=== PATIENT | male | born 1955 | race Caucasian/White ===

== ENCOUNTER 2021-12-29 10:21 | Outpatient (CLI) | payer MEDICARE, SELFPAY ==
[2021-12-29 12:03] LABS: Albumin* 4.1 g/dL (3.3-5.0); Chloride* 105 mmol/L (96-114)
[2021-12-29 12:04] LABS: Potassium* 3.9 mmol/L (3.6-5.1); Sodium* 142 mmol/L (135-149)
[2021-12-29 12:06] LABS: Bilirubin Total* 0.6 mg/dL (0.1-1.5); Carbon Dioxide* 27 mmol/L (20-32); Cholesterol* 183 mg/dL (90-199); Creatinine* 0.8 mg/dL (0.5-1.5); Estimated Glomerular Filt Rate 96 ml/min; Total Protein* 6.5 g/dL (6.0-8.3)
[2021-12-29 12:07] LABS: Alanine Aminotransferase* 16 U/L (4-50); Alkaline Phosphatase* 90 U/L (40-150); Aspartate Amino Transferase* 27 U/L (12-35); Blood Urea Nitrogen* 16 mg/dL (7-30); Glucose* 112 mg/dL (60-115); HDL Cholesterol* 31 mg/dL (>=40); LDL Cholesterol Calculated 120 mg/dL (<100); Triglycerides* 159 mg/dL (40-149)
[2021-12-29 12:39] LABS: PSA Screen* 0.52 ng/mL (0.10-4.00)
== END 2021-12-29 10:22 | disposition home or self-care (01) ==
PROVIDERS: PCP Internal Medicine; Visit Provider Internal Medicine
DX: Z00.00 Encounter for general adult medical examination without abnormal findings (principal); K21.9 Gastro-esophageal reflux disease without esophagitis; N40.0 Benign prostatic hyperplasia without lower urinary tract symptoms; Z12.5 Encounter for screening for malignant neoplasm of prostate; Z13.6 Encounter for screening for cardiovascular disorders
CPT/HCPCS: 80053; 80061; 84153

== ENCOUNTER 2022-03-03 10:15 | Outpatient (RCR) | payer MEDICARE, SELFPAY ==
--- NOTE | 2022-01-05 12:47 | PT.OPEX ---
[facility] Start: 01/05/22 07:18 Freq: Status: Active Protocol: Document 01/05/22 07:19 RAKAN (Rec: 01/05/22 12:15 RAKAN [id number]) E-signed By Connie Solorzano, PT Physical Therapy Outpatient Evaluation Insurance Information Recert Due Date 03/30/22 Insurance Name Medicare B,[employer] Medical Diagnosis Low back pain Treating Diagnosis Low back pain, limited lumbar mobility, core and lumbar paraspinal weakness, poor postural positioning Referring Philippe Reyes Subjective Subjective Saroj presents to PT with primary complaint of chronic off and on low back pain for a number of years however worse in the past couple of weeks where pain has been more constant. He denies any specific change in activity. He has been playing golf this summer but low back hurts regardless of if he plays or not. He has been using ice/ heat interchangeably depending on what feels better. Pain is worst in the mornings and has to do a lot of stretching before he gets up and moving around. He reports that he was told he had a spondy when he was very young but has not had any recent imaging. Notes occasional R thigh N/T in the past couple of weeks however has been much better the past few days. Stays fairly active. Has bands at home. Goals are to improve his exercise plan and improve pain management. PMH: L ACL, R RCR Pain Comments 2-8/10 worst in the mornings Date of Last Physician Visit 12/29/21 Current Work Status Retired Preferred Name Saroj Objective Other/Pertinent Objective Lumbar ROM: -Flx: mid rodriguez, mild pull in lumbar spine however more stretch felt in B hamstrings -Ext: hinges at TL junction, aggravating -R Sidebend: 100%, pinch/pain R lumbar -L Sidebend: 100% no pain Hip ROM: WNL and pain free Hip MMT: 5/5 all motions Standing posture: thoracic kyphosis, hypolordosis with hinging at TL junction Seated posture: Dural tension: none today Core strength: mild doming of upper abdominals with hooklying june Kurt test: - B Bird dog: unable to maintain neutral spine with full extension Quadruped: thoracic kyphosis Functional Test Performed & Score Oswestry: 13, 26% Assessment Assessment/Impression Patient is a 66 year old male presenting to physical therapy for evaluation and treatment of chronic off and on low back pain with occasional radicular pain. Patient presents with Low back pain, limited lumbar mobility, core and lumbar paraspinal weakness , poor postural positioning. Has a flexion based preference . These impairments are limiting the patients ability to wake in the mornings without pain, stand/sit/walk for extended periods of time. Patient appears motivated to participate in PT and presents with good prognosis to improve mobility, strength, proprioception and return to functional activities with skilled physical therapy intervention. Primary Functional Limitations wake in the mornings without pain, stand/sit/walk for extended periods of time Plan of Care Rehabilitation Potential Good Physical Therapy Goals In 4 weeks (02/02/22) Patient will demonstrate full lumbar AROM with 0/10 pain in all directions in order to demonstrate improved functional mobility. Patient will wake with <4/10 low back pain in order to improve sleep quality Pt will exhibit improved TA activation in order to improve posture and LE biomechanics. Pt will demonstrate improved sitting posture without cueing in consecutive sessions in order to decrease strain on low back In 8 weeks (03/02/22) Pt will exhibit 20% improvement on the Modified Oswestry Outcome measure to demonstrate functional improvement and progress towards goals. Pt will demonstrate proper lifting mechanics and postures to protect low back with Patient will wake with <2/10 low back pain in order to improve sleep quality Treatment Plan/Direct Interventions Gait Training,Ice/Cold/ Vasopneumatic,Joint Mobilization,Manual Therapy, Neuromuscular Re-ed,Self-Care/ Home Management,Therapeutic Activities,Therapeutic Exercises Frequency/Duration 1x/wk for 6 weeks with additional 4 sessions prn based on progress Patient Will Be Discharged From Therapy Completion of LTG(s), Independent w/HEP, Independently Progressing Evaluation Billing Untimed Code Treatment Minutes 26 Complexity Low Certification Information Initial Certification Date 01/05/22 Ending Certification Date 03/30/22 Provider Signature Shows Agreement With POC & Medical Necessity Physician Comment/Change Comment or Changes Physician NPI Number #
== END 2022-03-03 11:25 | disposition home or self-care (01) ==
PROVIDERS: PCP Internal Medicine; Visit Provider Internal Medicine
DX: M54.50 Low back pain, unspecified (principal); Z51.89 Encounter for other specified aftercare
CPT/HCPCS: 97110; 97112; 97161; 97530

== ENCOUNTER 2023-02-21 08:11 | Outpatient (CLI) | payer MEDICARE, SELFPAY | END 2023-02-21 08:12 | disposition home or self-care (01) | LOC: NFLDREF 08:12 | PROVIDERS: PCP Internal Medicine; Visit Provider Internal Medicine | DX: Z00.00 Encounter for general adult medical examination without abnormal findings (principal); N40.0 Benign prostatic hyperplasia without lower urinary tract symptoms | CPT/HCPCS: 84153 ==

== ENCOUNTER 2023-05-20 16:31 | Emergency (ER) | payer MEDICARE, SELFPAY ==
[2023-05-20 16:43] VITALS: BP 163/98; PULSE 68; RESP 20; TEMP 35.7; O2SAT 98; BMI 27.0
--- NOTE | 2023-05-20 16:57 | CRLHL7_ITS ---
For Patients: As a result of the Century Cures Act, medical imaging exams and procedure reports are released immediately into your electronic medical record. You may view this report before your referring provider. If you have questions, please contact your health care provider. INDICATION: Left flank pain TECHNIQUE: CT abdomen and pelvis without contrast. COMPARISON: None FINDINGS: Lower chest: Unremarkable. Liver: Unremarkable. Spleen: Unremarkable. Pancreas: Unremarkable. Gallbladder and bile ducts: Unremarkable. Kidneys: Nonobstructing left lower pole calculus. Low-attenuation exophytic lesion off the left inferior kidney incompletely assessed but could represent a cyst. There is mild left hydronephrosis with a 5 millimeter stone left UVJ/bladder base. Urinary bladder decompressed. Right kidney is unremarkable. Adrenal glands: Unremarkable. GI tract: Unremarkable. Appendix is normal. Diverticulosis Vascular structures: Unremarkable. Lymph nodes: Unremarkable. Miscellaneous: Unremarkable. No free air or significant free fluid. Pelvic Organs: Unremarkable. Bones: Unremarkable for age. IMPRESSION: 1. Mild left hydronephrosis with a 5 millimeter stone distal left UVJ/bladder base. Please note that all CT scans at this facility use dose modulation, iterative reconstruction, and/or weight-based dosing when appropriate to reduce radiation dose to as low as reasonably achievable. Dictated by Gilda Quiroga MD @ 05/20/2023 6:24:44 PM (Electronically Signed)
--- NOTE | 2023-05-20 16:59 | ED.GENADULT ---
HPI - General Adult General Date Seen: 05/20/23 Chief complaint: Flank Pain Stated complaint: kidney stone Time Seen by Provider: 05/20/23 16:48 Source: patient and RN notes reviewed Mode of arrival: ambulatory Limitations: no limitations History of Present Illness HPI narrative: Patient is a 67-year-old male who developed left flank pain about 30 minutes prior to arrival. He has a remote history of kidney stones perhaps 20 years ago any feels this might be similar. Pain does not radiate, he does not complain of nausea, vomiting, diarrhea, black or bloody stools. He does not have abdominal pain. He does say that he found it difficult to void when this pain came on despite feeling the urge to go. He notes that he was urinating normally earlier today and denies any suprapubic pain or discomfort. He has not had fevers. He did not have dysuria or hematuria earlier today. He does have BPH and reflux, otherwise generally healthy. Does not smoke or drink. Here today with his . Related Data Previous Rx's Medication Instructions Recorded dutasteride 0.5 mg capsule 0.5 mg PO QDAY BPH #90 caps 02/07/23 (Avodart) omeprazole 20 mg capsule,delayed 20 mg PO QDAY GERD #90 caps 05/01/23 release Allergies Allergy/AdvReac Type Severity Reaction Status Date / Time No Known Allergies Allergy Verified 02/28/23 13:03 Review of Systems Status of ROS: Reports: 10 or more systems reviewed and unremarkable except as noted in History and below PFSH [facility] Medical History Lateral knee pain ?M25.569 - Pain in unspecified knee (ICD-10) Low back pain ?M54.50 - Low back pain, unspecified (ICD-10) GERD (gastroesophageal reflux disease) ?K21.9 - Gastro-esophageal reflux disease without esophagitis (ICD-10) Encounter for counseling regarding advance directives (06/08/11) ?Z71.89 - Other specified counseling (ICD-10) BPH (benign prostatic hyperplasia) ?N40.0 - Benign prostatic hyperplasia without lower urinary tract symptoms (ICD-10) Surgical History H/O wisdom tooth extraction ?K08.409 - Partial loss of teeth, unspecified cause, unspecified class (ICD-10) S/P arthroscopy of left shoulder (08/09/18) ?Z98.890 - Other specified postprocedural states (ICD-10) S/P ACL reconstruction (05/22/03) ?Z98.890 - Other specified postprocedural states (ICD-10) Family History Other Colon cancer Social History Little interest or pleasure in doing things: not at all Feeling down, depressed, or hopeless: not at all Exam Narrative: Exam Narrative: Vital signs as noted above. In general, an alert, well-appearing patient. Head: Normocephalic, atraumatic. Eyes: Pupils are equal reactive. Extraocular movements are full. Conjunctivae are normal. ENT: Mucous membranes are moist. Neck: Supple without lymphadenopathy. Heart: Regular rate and rhythm. No murmur or rub. Lungs: Clear bilaterally. No increased work of breathing, crackles or wheezes. Abdomen: Soft and nontender. No organomegaly. Extremities: Well perfused. No edema. No calf tenderness. Pulses intact. Neurologic: Patient is alert and oriented to person and place. Speech is fluent. Face is symmetric. Moves all extremities equally. Affect: Normal. Skin: Warm and dry. Well perfused. Const: Vital Signs, click to edit/add: Vital Signs - 24 hr 05/20/23 16:43 Temperature 96.3 F L Pulse Rate [Pulse Oximeter] 68 Respiratory Rate 20 Blood Pressure [Ri ght Upper Arm] 163/98 H Pulse Oximetry 98 Oxygen Delivery Me thod Room Air Documenting provider has reviewed patient's vital signs: yes Course Course ED Course: Patient presents with left flank pain, difficulty urinating. Does not have suprapubic pain or tenderness making urinary retention a less likely cause for his symptoms. Certainly hydronephrosis from a ureteral stone is possible, rule out urinary tract infection/pyelonephritis, or other cause for his symptoms such as aortic pathology, retroperitoneal hemorrhage, muscle spasm. Does not have any thoracic pain or difficulty breathing. No history of trauma or anticoagulation. Urinalysis shows 50-100 red blood cells, 2-5 white blood cells, strengthening argument for kidney stone. Metabolic panel and CBC are unremarkable, creatinine is 0.9. CT scan by my review showed some nonobstructing stones in the left kidney as well as a 5 mm stone in the bladder which is fairly compressed. The stone at the UVJ J looks like it is there nearly in the bladder if not already in the bladder. Patient had Toradol initially did not feel that was terribly helpful, then had 4 mg of morphine and pain is now gone. Unclear whether that is the morphine or whether that stone has actually passed into the bladder at this point. I have reviewed all this with him. Will have him strain his urine, if he does not see passage that stone in the next week or so should follow up with Urology. Otherwise, ibuprofen 3 times daily with food, I prescribed oxycodone #8 as well as some Zofran from [facility] in case he needs those. Return at any time for severe uncontrolled pain, fever, chills or other worsening. Vital Signs Vital signs: Initial Vital Signs Temperature 96.3 F L 05/20/23 16:43 Temperature Source Temporal Artery Scan 05/20/23 16:43 Pulse Rate 68 05/20/23 16:43 Respiratory Rate 05/20/23 16:43 Blood Pressure 163/98 H 05/20/23 16:43 Blood Pressure Mean 119 H 05/20/23 16:43 Blood Pressure Position Sitting 05/20/23 16:43 Pulse Oximetry 98 05/20/23 16:43 Oxygen Delivery Method Room Air 05/20/23 16:43 Vital Signs Temperature 96.3 F L 05/20/23 16:43 Pulse Rate 68 05/20/23 16:43 Respiratory Rate 20 05/20/23 16:43 Blood Pressure 163/98 H 05/20/23 16:43 Pulse Oximetry 98 05/20/23 16:43 Oxygen Delivery Method Room Air 05/20/23 16:43 Temperature 96.3 F L 05/20/23 16:43 Pulse Rate 68 05/20/23 16:43 Respiratory Rate 20 05/20/23 16:43 Blood Pressure 163/98 H 05/20/23 16:43 Pulse Oximetry 98 05/20/23 16:43 Oxygen Delivery Method Room Air 05/20/23 16:43 Medications Administered Medications: Discontinued Medications Generic Name Dose Route Start Last Admin Trade Name Freq PRN Reason Stop Dose Admin Sodium Chloride 1,000 mls @ 1,000 mls/hr 05/20/23 17:00 05/20/23 17:51 0.9 % Sodium Chloride 1000 Ml IV 05/20/23 17:59 Infused .Q1H DALILA Infusion Ketorolac Tromethamine 15 mg 05/20/23 16:57 05/20/23 17:27 Ketorolac 15 Mg/Ml Inj IVP 05/20/23 16:58 15 mg ONCE ONE Administration Morphine Sulfate 4 mg 05/20/23 17:51 05/20/23 17:57 Morphine 4 Mg/Ml Inj IVP 05/20/23 17:52 4 mg ONCE ONE Administration Medical Decision Making Lab Data Labs: Lab Results 05/20/23 05/20/23 Range/Units 16:59 17:08 WBC 4.98 (4.50-11.00) K/uL RBC 5.31 (4.30-5.90) m/uL Hgb 16.1 (13.5-17.5) gm/dL Hct 47.9 (37.0-53.0) % MCV 90 (80-100) fL MCH 30 (26-34) pg MCHC 34 (32-36) gm/dL RDW Coeff of Bridgette 12.4 (11.5-15.5) % Plt Count 228 (140-440) K/uL Neut % (Auto) 59.3 (42.0-72.0) % Lymph % (Auto) 24.7 (20-44) % [place] % (Auto) 10.6 (0.0-11.0) % Eos % (Auto) 4.4 (0.0-7.0) % Baso % (Auto) 0.8 (0.0-3.0) % Neut # (Auto) 2.95 (1.7-7.0) K/uL Lymph # (Auto) 1.23 (0.90-2.90) K/uL [place] # (Auto) 0.50 (0.00-0.90) K/UL Eos # (Auto) 0.22 (0.00-0.50) K/uL Baso # (Auto) 0.04 (0.00-0.30) K/uL Abs Immat Gran (auto) 0.01 (0.00-0.30) K/uL Imm/Tot Granulo (auto) 0.2 % Sodium 141 (135-149) mmol/L Potassium 3.6 (3.6-5.1) mmol/L Chloride 104 (96-114) mmol/L Carbon Dioxide 29 (20-32) mmol/L Anion Gap 8 (7-15) mEq/L BUN 14 (7-30) mg/dL Creatinine 0.9 (0.5-1.5) mg/dL Estimated Creat Clear 81.06 Estimated GFR 92 ml/min Glucose 121 H (60-115) mg/dL Calcium 9.1 (8.4-10.6) mg/dL Urine Color Yellow (Yellow) Urine Appearance Cloudy A (Clear) Urine pH 5.5 (5.0-8.5) Ur Specific [place] >= 1.030 (1.000-1.030) Urine Protein Negative (Negative) Urine Glucose (UA) Negative (Negative) Urine Ketones Negative (Negative) Urine Blood 1+ A (Negative) Urine Nitrite Negative (Negative) Urine Bilirubin Negative (Negative) Urine Urobilinogen 0.2 (0.2-1.0) Ur Leukocyte Esterase Negative (Negative) Urine RBC 50-100 A (0-2) Urine WBC 2-5 (0-5) Ur Squamous Epith Cells Few (None-Few) Urine Bacteria None (None) Discharge Plan Discharge Clinical Impression: Kidney stone on left side Patient Disposition: Home, Self-Care Condition: Improved Instructions: Kidney Stones (ED) Additional Instructions: Your CT scan shows a 5 mm stone that is very near to entering the bladder. As a result, I suspect that you will pass this stone without needing an intervention, but you should strain your urine and if you do not see at of it it is of a stone passing in the next few days to week, you should follow-up with urology. If at any time you have severe uncontrolled pain, fevers, chills, vomiting, return to the emergency department. I would recommend taking ibuprofen 400 mg 3 times daily with food for the next several days to week or until you passed the stone. Zofran and oxycodone prescribed if needed for more severe pain or nausea/vomiting. Activity Level: No Restrictions Discharge Diet: Regular Prescriptions: No Action dutasteride [Avodart] 0.5 mg capsule 0.5 mg PO QDAY Qty: 90 0RF omeprazole 20 mg capsule,delayed release(DR/EC) 20 mg PO QDAY Qty: 90 2RF Follow Up/Referrals: Philippe Wallis MD [Primary Care Provider] - Stand Alone Forms: [employer] Info Instructions
[2023-05-20 17:05] LABS: Appearance Urine Cloudy (Clear); Bilirubin Urine Negative (Negative); Blood Urine 1+ (Negative); Color Urine Yellow (Yellow); Glucose Urine Negative (Negative); Ketones Urine Negative (Negative); Leukocyte Esterase Urine Negative (Negative); Nitrite Urine Negative (Negative); Protein Urine Negative (Negative); Specific Gravity Urine >= 1.030 (1.000-1.030); Urobilinogen Urine 0.2 (0.2-1.0); pH Urine 5.5 (5.0-8.5)
[2023-05-20 17:11] LABS: Basophils Absolute Auto 0.04 K/uL (0.00-0.30); Basophils Percent Auto 0.8 % (0.0-3.0); Eosinophils Absolute Auto 0.22 K/uL (0.00-0.50); Eosinophils Percent Auto 4.4 % (0.0-7.0); Hematocrit 47.9 % (37.0-53.0); Hemoglobin* 16.1 gm/dL (13.5-17.5); Immature Granulocytes Abs Auto 0.01 K/uL (0.00-0.30); Immature Granulocytes Pct Auto 0.2 %; Lymphocytes Absolute Auto 1.23 K/uL (0.90-2.90); Lymphocytes Percent Auto 24.7 % (20-44); Mean Corpuscular HGB Conc 34 gm/dL (32-36); Mean Corpuscular Hemoglobin 30 pg (26-34); Mean Corpuscular Volume 90 fL (80-100); Monocytes Percent Auto 10.6 % (0.0-11.0); Neutrophils Absolute Auto 2.95 K/uL (1.7-7.0); Neutrophils Percent Auto 59.3 % (42.0-72.0); Platelet Count* 228 K/uL (140-440); RDW Coefficient of Variation % 12.4 % (11.5-15.5); Red Blood Count 5.31 m/uL (4.30-5.90); White Blood Count* 4.98 K/uL (4.50-11.00)
[2023-05-20 17:14] LABS: Slide Review Reflex No
[2023-05-20 17:15] LABS: RBC Urine 50-100 (0-2); Squamous Epithelial Cell Urine Few (None-Few)
[2023-05-20 17:24] LABS: Chloride* 104 mmol/L (96-114); Potassium* 3.6 mmol/L (3.6-5.1); Sodium* 141 mmol/L (135-149)
[2023-05-20 17:26] LABS: Creatinine* 0.9 mg/dL (0.5-1.5); Est. Creatinine Clearance* 81.06; Estimated Glomerular Filt Rate 92 ml/min
[2023-05-20 17:27] LABS: Anion Gap 8 mEq/L (7-15); Blood Urea Nitrogen* 14 mg/dL (7-30); Carbon Dioxide* 29 mmol/L (20-32); Glucose* 121 mg/dL (60-115)
[2023-05-20] MEDS: KETOROLAC 15 MG/ML inj IVP (17:27)
[2023-05-20 17:28] LABS: Calcium* 9.1 mg/dL (8.4-10.6)
[2023-05-20] MEDS: 0.9 % SODIUM CHLORIDE 1000 ml 1,000 ML IV (17:28)
[2023-05-20] MEDS: MORPHINE 4 MG/ML INJ IVP (17:57)
== END 2023-05-20 19:12 | disposition home or self-care (01) ==
PROVIDERS: Emergency Provider Emergency Medicine; PCP Internal Medicine
DX: N20.0 Calculus of kidney (principal)
CPT/HCPCS: 36415; 74176; 80048; 81001; 85025; 96374; 96375; 99284; J1885; J2270; J7030

== ENCOUNTER 2023-07-07 07:38 | Outpatient (CLI) | payer MEDICARE, SELFPAY ==
--- NOTE | 2023-07-07 08:49 | W.ANESCHARGE ---
Anesthesia Charges Start Date/Time Anesthesia Start Date: 07/07/23 Anesthesia Start Time: 08:26 Stop Date/Time Anesthesia Stop Date: 07/07/23 Anesthesia Stop Time: 08:47
--- NOTE | 2023-07-07 11:11 | W.ANESCHARGE ---
Anesthesia Charges Start Date/Time Anesthesia Start Date: 07/07/23 Anesthesia Start Time: 08:26 Stop Date/Time Anesthesia Stop Date: 07/07/23 Anesthesia Stop Time: 08:47
== END 2023-07-07 07:39 | disposition home or self-care (01) ==
LOC: OP CLINIC 07:39
PROVIDERS: PCP Internal Medicine; Visit Provider Internal Medicine
DX: Z12.11 Encounter for screening for malignant neoplasm of colon (principal); Z80.0 Family history of malignant neoplasm of digestive organs; K63.5 Polyp of colon; K57.30 Diverticulosis of large intestine without perforation or abscess without bleeding; K64.8 Other hemorrhoids; Z86.010 Personal history of colon polyps
CPT/HCPCS: 00811; 45380; 88305; J2704

== ENCOUNTER 2024-02-19 09:10 | Outpatient (CLI) | payer MEDICARE, SELFPAY | END 2024-02-19 09:11 | disposition home or self-care (01) | LOC: NFLDREF 02-20 16:04 | PROVIDERS: PCP Internal Medicine; Referring Provider Internal Medicine; Visit Provider Internal Medicine | DX: N40.0 Benign prostatic hyperplasia without lower urinary tract symptoms (principal); E78.5 Hyperlipidemia, unspecified; Z12.5 Encounter for screening for malignant neoplasm of prostate; Z13.9 Encounter for screening, unspecified | CPT/HCPCS: 80053; 80061; G0103 ==

== ENCOUNTER 2024-02-28 11:20 | Outpatient (CLI) | payer MEDICARE, SELFPAY | END 2024-02-28 11:21 | disposition home or self-care (01) | LOC: NFLDREF 02-29 08:26 | PROVIDERS: PCP Internal Medicine; Referring Provider Internal Medicine; Visit Provider Internal Medicine | DX: N45.1 Epididymitis (principal) | CPT/HCPCS: 87086 ==

== ENCOUNTER 2025-03-12 09:10 | Outpatient (CLI) | payer MEDICARE, SELFPAY | END 2025-03-12 09:11 | disposition home or self-care (01) | PROVIDERS: PCP Internal Medicine; Visit Provider Internal Medicine | DX: K21.9 Gastro-esophageal reflux disease without esophagitis (principal) | CPT/HCPCS: 80053; 80061; G0103 ==